=== PATIENT | female | born 1985 | race Caucasian/White ===

== ENCOUNTER 2021-08-03 11:40 | Emergency (ER) | payer BC ==
[~2021-08-03] VITALS: Ht 165.1 cm; Wt 56.7 kg
[2021-08-03] MEDS ORDERED: CHILDREN'S ASPI81 MG PO (12:12)
[2021-08-03] MEDS ORDERED: PLAQUENIL (12:13)
[2021-08-03] MEDS ORDERED: VALACYCLOVIR500 MG PO (13:44)
== END 2021-08-03 13:46 | disposition home or self-care (01) ==
LOC: ER 11:40
DX: B00.9 Herpesviral infection, unspecified (principal)